=== PATIENT | male | born 1980 | race Hispanic/Latino ===

== ENCOUNTER 2020-03-19 03:03 | Inpatient (IN) | payer OTHER, SELFPAY ==
[2020-03-19 04:19] LABS: Medtox Reader # READER 4; THC/Cannabinoid Screen Detected (NotDetected)
[2020-03-19 04:20] LABS: Amphetamine Not Detected (NotDetected); Barbiturates Screen Not Detected (NotDetected); Benzodiazepine Screen Not Detected (NotDetected); Cocaine Metabolite Screen Not Detected (NotDetected); Medtox Control Line Valid? VALID (VALID); Methadone Not Detected (NotDetected); Methamphetamine Not Detected (NotDetected); Opiate Screen Not Detected (NotDetected); Oxycodone Screen Not Detected (NotDetected); Phencyclidine (PCP) Not Detected (NotDetected); Tricyclic Screen Not Detected (NotDetected)
[2020-03-19] MEDS ORDERED: hydrALAZINE 20 MG/ML VIAL SLOW IVP PRN (04:46)
[2020-03-19 04:50] LABS: Acetaminophen Less than 6.0 mcg/mL (10.0-30.0); Alcohol Less than 10 mg/dL (Less than 10); Salicylate Less than 8.0 mg/dL (15.0-30.0)
[2020-03-19 05:00] LABS: Troponin I Less than 0.010 ng/mL (< 0.028)
--- NOTE | 2020-03-19 05:25 | HP ---
REASON FOR ADMISSION: Abdominal pain. HISTORY OF PRESENT ILLNESS: This is a 39-year-old male patient, who was transferred from the emergency room at [place] to our emergency room. He had multiple visits to the ER for abdominal pain and is supposed to follow up with GI as an outpatient. He returns with abdominal pain and hiccups with nausea and vomiting. He underwent multiple investigations so far. No obvious source for his pain. He is known to actively use marijuana and other substances and since he claims that it has been a week he had not used marijuana, it was thought that his abdominal pain is secondary to withdrawals. At the ER at [place], he received 25 mg of Phenergan and 1 mg of Ativan. The patient became somnolent, but easily arousable, but then fell back into sleep. He is currently in our emergency room. When I went to see him, he was hiccuping, but also very somnolent, wakes up briefly and then falls back into sleep. When asked about his pain, he points to the supraumbilical area. I did review ER notes and I see that he has been complaining of the abdominal pain intermittently for the past two weeks, but has been constant for the past two days. He did report vomiting 10 times. He did report seeing red in his vomitus. The patient does not have any past medical history. SOCIAL HISTORY: He does not smoke. Does not drink alcohol. He does have history of substance abuse as mentioned above. FAMILY HISTORY: Unable to obtain due to his somnolence. REVIEW OF SYSTEMS: Unable to obtain due to somnolence. PHYSICAL EXAMINATION: GENERAL: He is somnolent. He is arousable, but then falls back into sleep. VITAL SIGNS: His blood pressure is 187/116, heart rate of 100, temperature 98.5, saturating 99% on room air. HEENT: Head is nontraumatic and normocephalic. Pupils are equal and reactive. Extraocular movements are intact. Nonicteric sclerae. Well injected conjunctivae. Oral mucosa normal. Nasal mucosa normal. NECK: Supple. No adenopathy. No murmur. Thyroid is not palpable. Trachea is midline. No supraclavicular lymphadenopathy. CARDIOVASCULAR: S1, S2 regular. No murmurs. No gallops. No friction rubs. No displacement of PMI. LUNGS: Poor inspiratory effort. Bowel sounds are positive. Slight tenderness on palpation of the suprapubic area. Abdomen: Overall, the abdomen is soft. EXTREMITIES: No lower extremity edema. No cyanosis. NEUROLOGIC: Unable to perform due to somnolence. LABORATORY DATA: Blood work shows WBC of 8.9 and hemoglobin 16.9, previously 14.6. Sodium of 135, potassium 3.1, creatinine 1.32, previously 0.94. Troponin of 0.045. A urine tox screen shows cannabinoids. CT of the abdomen shows eccentric thickening involving the distal esophagus, potentially related to small hiatal hernia. Upper GI versus endoscopy is recommended. ASSESSMENT AND PLAN: This is a 39-year-old male patient presenting with recurrent abdominal pain. CAT scan showing eccentric thickening involving the distal esophagus. His pain remains of unclear etiology. At [facility] [facility], he did receive Ativan and Phenergan. Currently, he is very somnolent. His blood pressure appears to be uncontrolled and his initial troponin was indeterminate. The patient will be admitted to telemetry. We will continue cycling his cardiac enzymes and we will provide him with IV hydralazine for blood pressure control. In regard of his abdominal pain, we will start him on IV Protonix for possible gastritis/peptic ulcer disease and we will ask GI to see him until then he will be n.p.o. For deep venous thrombosis prophylaxis, he will be on SCDs. Regarding his worsening kidney function, he will receive IV fluids. We will recheck his electrolytes. Later on today, he did receive boluses at the ER. Job ID: [id number]
[2020-03-19] MEDS ORDERED: Sodium Chloride 0.9% (PF) 10 ML VIAL FS PRN (05:30)
[2020-03-19] MEDS: Metoclopramide HCl 10 MG/2 ML VIAL IVP SCH ×3 (05:45→21:50)
[2020-03-19] MEDS: Dextrose 5 % And 0.9 % NaCl 1,000 ML IV SCH ×2 (05:45→18:37)
[2020-03-19 07:47] LABS: Troponin I 0.012 ng/mL (< 0.028)
[2020-03-19 08:03] LABS: Chloride 103 mmol/L (98-107); Potassium 3.8 mmol/L (3.5-5.1); Sodium 137 mmol/L (136-145)
[2020-03-19 08:04] LABS: Calcium 8.6 mg/dL (7.8-10.44); Glucose 123 mg/dL (70-105)
[2020-03-19 08:06] LABS: Anion Gap 16 mmol/L (10-20); Carbon Dioxide 22 mmol/L (22-29)
[2020-03-19 08:08] LABS: Calc. Creatinine Clearance 100 mL/min (70-130); Estimated GFR-MDRD Greater than 90
[2020-03-19 08:09] LABS: BUN (Urea Nitrogen) 18 mg/dL (8.9-20.6)
[2020-03-19 08:12] LABS: Bilirubin Negative (Negative); Blood, Urine Negative (Negative); Clarity Clear (Clear); Glucose, Urine (Dipstick) Normal (Negative); Ketone, Urine Trace mg/dL (Negative); Leukocyte Negative Leu/uL (Negative); Nitrite Negative (Negative); Protein, Urine (Dipstick) Negative (Neg-Trace); Specific Gravity, Urine 1.012 (1.002-1.036); Urobilinogen Normal mg/dL (Less than 2); pH, Urine 7.5 (5.0-9.0)
[2020-03-19 08:17] LABS: #Lymphocytes 1.1 thou/uL (1.20-3.40); #Monocytes 0.6 thou/uL (0.11-0.59); %Eosinophils 0.2 % (0.0-10.0); %Lymphocytes 13.1 % (21.0-51.0); %Monocytes 6.4 % (0.0-10.0); %Neutrophils 80.2 % (42.0-75.0); Mean Corpuscular HGB CONC 34.3 g/dL (32.0-36.0); Mean Corpuscular Hemoglobin 31.8 pg (27.0-31.0); Mean Corpuscular Volume 92.7 fL (78.0-98.0); Mean Platelet Volume 7.8 fL (7.4-10.4); Platelet Count 311 thou/uL (130-400); RBC Distribution Width 12.8 % (11.5-14.5); Red Blood Cell (RBC) Count 5.02 mill/uL (4.70-6.10); White Blood Cell (WBC) Count 8.7 thou/uL (4.8-10.8)
[2020-03-19 08:35] LABS: ALT (SGPT) 31 U/L (8-55); AST (SGOT) 22 U/L (5-34); Albumin 4.2 g/dL (3.5-5.0); Alkaline Phosphatase 54 U/L (40-110); Anion Gap 15 mmol/L (10-20); BUN (Urea Nitrogen) 17 mg/dL (8.9-20.6); Bilirubin, Total 1.2 mg/dL (0.2-1.2); Calc. Creatinine Clearance 96 mL/min (70-130); Calcium 8.5 mg/dL (7.8-10.44); Carbon Dioxide 22 mmol/L (22-29); Chloride 102 mmol/L (98-107); Estimated GFR-MDRD Greater than 90; Globulin 2.9 g/dL (2.4-3.5); Glucose 129 mg/dL (70-105); Lipase 9 U/L (8-78); Potassium 3.6 mmol/L (3.5-5.1); Protein, Total 7.1 g/dL (6.0-8.3); Sodium 135 mmol/L (136-145)
[2020-03-19] MEDS: Pantoprazole 40 MG VIAL IVP SCH ×2 (08:43→21:50)
--- NOTE | 2020-03-19 12:13 | PDOC.HOSPP ---
- Subjective Encounter Date: 03/19/20 Encounter Time: 09:50 Subjective: Jim is quite somnolent. He is barely able to talk to me. Does say he has abdominal discomfort. COVID is pending. - Objective Vital Signs & Weight: Vital Signs (12 hours) Temp Pulse Resp BP Pulse Ox 03/19/20 07:38 99.2 F 86 16 171/112 H 99 03/19/20 04:34 98.3 F 86 22 H 172/111 H 97 Weight Weight 137 lb 4.8 oz I&O: 03/18/20 03/19/20 03/20/20 06:59 06:59 06:59 Output Total 400 Balance -400 Result Diagrams: 03/19/20 08:03 03/19/20 08:03 Hospitalist ROS - Medication Medications: Active Medications Generic Name Dose Route Start Last Admin Trade Name Freq PRN Reason Stop Dose Admin Dextrose/Sodium Chloride 1,000 mls @ 75 mls/hr 03/19/20 05:00 03/19/20 05:45 D5 0.9% Ns IV 1,000 mls .[id number] MITA Administration Metoclopramide HCl 5 mg 03/19/20 06:00 03/19/20 05:45 Metoclopramide Hcl 10 Mg/2 Ml Vial IVP 5 mg Q8HR MITA Administration Pantoprazole Sodium 40 mg 03/19/20 09:00 03/19/20 08:43 Pantoprazole 40 Mg Vial IVP 40 mg Q12HR MITA Administration Sodium Chloride 10 ml 03/19/20 05:30 03/19/20 05:47 Flush - Normal Saline 10 Ml Syringe IVF 10 ml PRN PRN Administration Saline Flush - Exam General Appearance: NAD, ill appearing General - other findings: Sleepy and fatigued Eye: PERRL ENT: normocephalic atraumatic Neck: supple Heart: RRR, normal peripheral pulses Respiratory: CTAB, normal chest expansion Gastrointestinal: soft, normal bowel sounds Neurological: no focal deficits Psychiatric: somnolent Psychiatric - other findings: Sleepy. Hosp A/P - Plan Persistent intractable abdominal pain. Distal esophagitis --On IV protonix --GI consult pending -Tylenol versus Ultram as needed. -Zofran as needed Hypertensive urgency. --Patient does not have any home medications. -Starting him on a low-dose Norvasc as well as hydralazine with more frequency to uptitrate easily if needed. COVID swab pending.
[2020-03-19] MEDS ORDERED: Acetaminophen 325 MG TAB PO PRN (12:18)
[2020-03-19] MEDS ORDERED: Ondansetron PF 4 MG/2 ML Vial IVP PRN (12:18)
[2020-03-19] MEDS ORDERED: traMADol HCl 50 MG TAB PO PRN (12:18)
[2020-03-19] MEDS: hydrALAZINE 25 MG TAB PO SCH ×2 (13:27→21:49)
[2020-03-19 13:29] LABS: SARS-CoV-2 MS2 Positive; SARS-CoV-2 N Gene Negative; SARS-CoV-2 S Gene Negative; SARS-CoV-2 by NAA Not Detected (NotDetected); SARS-CoV-2 orf1ab Negative
[2020-03-19] MEDS ORDERED: hydrALAZINE 25 MG TAB PO SCH (15:00)
--- NOTE | 2020-03-19 18:40 | CON ---
DATE OF CONSULTATION: 03/19/2020 REQUESTING PHYSICIAN: Jessica Valente MD REASON FOR CONSULTATION: Abdominal pain. HISTORY OF PRESENT ILLNESS: Toby Perez is a 39-year-old man, who was admitted to the hospital last night after multiple recent ER presentations with abdominal pain, nausea, and vomiting. He reports that he has been told that he had ulcer disease in the past based on prior endoscopy in [place] several years ago. He reports having taken several medications off and on through the years for hypertension and for abdominal pain as well as reflux. He says he takes ibuprofen on an as-needed basis. He is not really sure what he has taken for reflux in the past. He has not had any abdominal surgeries. He does have a long history of marijuana use, but says he quit just 1 week ago. At any rate, he says for several years, he has had intermittent pain throughout the abdomen, but for the past couple of weeks, and especially the past couple of days, it has been much worse. The pain is primarily in the epigastrium. It is always worse postprandially. It is associated with nausea. Over the past couple of days, he has had multiple episodes of emesis. He says that the emesis ranges from yellow liquid to coffee-ground material and a couple of times there was a little bit of red within the emesis. He has not been throwing up today. After admission last night, he was started on Reglan 5 mg q.8 hours IV as well as Protonix 40 mg IV q.12 hours. He is still having a lot of epigastric pain and still feels nauseated. He has been n.p.o. today. He is also being treated for hypertensive urgency with Norvasc and amlodipine. He has remained hemodynamically stable. Lab evaluation was really unremarkable except for urine tox screen showed positive for cannabinoids and a CT of the abdomen and pelvis demonstrating mild eccentric wall thickening in the distal esophagus, otherwise unrevealing. REVIEW OF SYSTEMS: Full review of systems including constitutional, head, eyes, ears, nose, throat, GI, , cardiovascular, respiratory, musculoskeletal, and neurologic systems is negative except as noted in the HPI. PAST MEDICAL HISTORY: 1. Reported history of peptic ulcer disease several years ago diagnosed in [place]. 2. Hypertension. 3. Chronic abdominal pain. ALLERGIES: NO KNOWN DRUG ALLERGIES. MEDICATIONS: Outpatient medications: None. Inpatient medications: 1. Tylenol p.r.n. 2. Norvasc. 3. Hydralazine. 4. Reglan 5 mg IV q.8 hours. 5. Zofran 4 mg IV q.6 hours p.r.n. 6. Pantoprazole 40 mg IV q.12 hours. 7. Tramadol p.r.n. SOCIAL HISTORY: He denies tobacco use. He is not having any alcohol at present. He does have long history of marijuana use, but says he quit 1 week ago. He denies other drug use. FAMILY HISTORY: No known family history of gastrointestinal illness or malignancy. PHYSICAL EXAMINATION: VITAL SIGNS: Temperature 98.9, blood pressure 194/123, heart rate 85, and oxygen saturation 100% on room air. GENERAL: A 39-year-old man, appearing nontoxic, lying in bed comfortably, somnolent, but easily arousable. When arouse, he appears to be in mild distress from abdominal pain. SKIN: No jaundice, no rashes were palpable. EYES: No scleral icterus. Extraocular movements intact. ENT: Mucous membranes moist. No oral lesions. Lymph: No submandibular or supraclavicular lymphadenopathy. THYROID: Nontender to palpation. HEART: Regular rate and rhythm. LUNGS: Clear to auscultation bilaterally. ABDOMEN: Nondistended. Bowel sounds are present. Soft. Reports tenderness to palpation throughout the abdomen, but no guarding or rebound tenderness. EXTREMITIES: No peripheral edema. VESSELS: Radial pulses 2+ bilaterally. NEURO: Cranial nerves II through XII intact bilaterally. No focal deficits. LABORATORY STUDIES: WBC 8.7, hemoglobin 16, and platelets 311. Sodium 135, potassium 3.6, BUN 17, and creatinine 0.89. Lipase only 9. Troponin negative. LFTs all normal with total bilirubin 1.2, alkaline phosphatase 54, AST 22, ALT 31, and albumin 4.2. Urinalysis negative. COVID negative. Urine tox screen is positive for cannabinoids. Serum plasma is negative for alcohol, Tylenol, or salicylates. IMAGING STUDIES: Chest x-ray and abdominal x-ray are unremarkable. On 03/16/2020, CT of the abdomen and pelvis demonstrated mild eccentric wall thickening in the distal esophagus, a tiny right hepatic hypodensity, which is too small to characterize. Otherwise, normal-appearing liver, spleen, pancreas, and bowel. Otherwise, normal exam. ASSESSMENT AND PLAN: 1. Epigastric pain. 2. Nausea and vomiting. 3. Coffee-ground emesis. 4. Esophageal thickening per CT scan 3 days ago. I had a long discussion with the patient. The primary differential would be upper gastrointestinal mucosal pathology such as gastritis or peptic ulcer disease, or erosive esophagitis, versus cannabinoid hyperemesis syndrome with secondary esophagitis due to all the vomiting. His laboratory and imaging evaluation are unremarkable. We are going to plan for diagnostic esophagogastroduodenoscopy tomorrow. If the EGD is negative or unrevealing, this would point more definitively towards cannabinoid hyperemesis syndrome. Regardless, he needs to completely stay away from all marijuana going forward, as he states he only quit 1 week ago. In the meantime, continuing with IV Protonix and Reglan. Thank you for the consultation. Please call anytime with questions or concerns. Further recommendations following EGD tomorrow. Job ID: [id number]
[2020-03-19] MEDS ORDERED: Amlodipine 5 MG TAB PO SCH (21:00)
[2020-03-19] MEDS: Amlodipine 5 MG TAB PO SCH (21:48)
[2020-03-20] MEDS: Metoclopramide HCl 10 MG/2 ML VIAL IVP SCH ×3 (05:17→21:26)
[2020-03-20] MEDS ORDERED: Sodium Chloride 0.9% 10 ML ONE (09:24)
[2020-03-20] MEDS: Dextrose 5 % And 0.9 % NaCl 1,000 ML IV SCH (11:00)
[2020-03-20] MEDS: Amlodipine 5 MG TAB PO SCH ×2 (11:01→21:28)
[2020-03-20] MEDS: hydrALAZINE 25 MG TAB PO SCH ×3 (11:01→21:28)
[2020-03-20] MEDS: Pantoprazole 40 MG VIAL IVP SCH ×2 (11:02→21:29)
[2020-03-20 11:18] VITALS: BMI 22.4
--- NOTE | 2020-03-20 12:07 | PDOC.HOSPP ---
- Subjective Encounter Date: 03/20/20 Encounter Time: 10:20 Subjective: Patient returned from EGD which showed hiatal hernia and biopsy done. Starting him on clear liquid diet. Care plan discussed with him. Including possibility for hyperemesis syndrome secondary to marijuana use. I asked him to stop using it that could have triggered him to have hyperemesis syndrome if it becomes more severe and serious he can have worsening of his upper GI bleed including hemodynamic instability. Patient seems to be understanding. - Objective Vital Signs & Weight: Vital Signs (12 hours) Temp Pulse Resp BP BP BP Pulse Ox 03/20/20 11:38 97.6 F 03/20/20 11:01 70 159/100 H 03/20/20 10:50 66 20 159/100 H 100 03/20/20 07:51 97.7 F 70 16 131/89 99 03/20/20 04:13 98.0 F 67 16 130/81 98 03/20/20 00:23 69 18 124/91 H Weight Admit Weight 137 lb 4.8 oz Weight 130 lb 9.6 oz I&O: 03/19/20 03/20/20 03/21/20 06:59 06:59 06:59 Intake Total 2091 Output Total 1100 Balance 991 Result Diagrams: 03/19/20 08:03 03/19/20 08:03 Hospitalist ROS - Medication Medications: Active Medications Generic Name Dose Route Start Last Admin Trade Name Freq PRN Reason Stop Dose Admin Amlodipine Besylate 5 mg 03/19/20 21:00 03/20/20 11:01 Amlodipine 5 Mg Tab PO 5 mg BID MITA Administration Hydralazine HCl 25 mg 03/19/20 15:00 03/20/20 11:01 Hydralazine 25 Mg Tab PO 25 mg TID MITA Administration Dextrose/Sodium Chloride 1,000 mls @ 75 mls/hr 03/19/20 05:00 03/20/20 11:00 D5 0.9% Ns IV 1,000 mls .[id number] MITA Administration Metoclopramide HCl 5 mg 03/19/20 06:00 03/20/20 05:17 Metoclopramide Hcl 10 Mg/2 Ml Vial IVP 5 mg Q8HR MITA Administration Pantoprazole Sodium 40 mg 03/19/20 09:00 03/20/20 11:02 Pantoprazole 40 Mg Vial IVP 40 mg Q12HR MITA Administration Sodium Chloride 10 ml 03/19/20 05:30 03/19/20 05:47 Flush - Normal Saline 10 Ml Syringe IVF 10 ml PRN PRN Administration Saline Flush Sodium Chloride 10 ml 03/19/20 05:30 03/20/20 11:02 Sodium Chloride 0.9% (Pf) 10 Ml Vial FS 10 ml PRN PRN Administration RECONSTITUTION - Exam General Appearance: NAD, awake alert Eye: PERRL ENT: normocephalic atraumatic Neck: supple Heart: RRR, normal peripheral pulses Respiratory: CTAB, normal chest expansion Gastrointestinal: soft, normal bowel sounds Neurological: no focal deficits Psychiatric: A&O x 3 Hosp A/P - Plan Persistent intractable abdominal pain. Distal esophagitis --On IV protonix --GI consult pending -Tylenol versus Ultram as needed. -Zofran as needed Hypertensive urgency. --Patient does not have any home medications. -Starting him on a low-dose Norvasc as well as hydralazine with more frequency to uptitrate easily if needed. COVID swab pending.-------------> negative EGD showed hiatal hernia and biopsy done. Starting him on clear liquid diet. Care plan discussed with him. Including possibility for hyperemesis syndrome secondary to marijuana use. I asked him to stop using it as that could have triggered him to have hyperemesis syndrome. if it becomes more severe and serious he can have worsening of his upper GI bleed including hemodynamic instability. Patient seems to be understanding. -Starting him on clear liquid diet will advance as he tolerates. -If all goes well possible discharge in 1 to 2 days.
[2020-03-20] MEDS ORDERED: Lidocaine 1% PF 5 ML VIAL ONE (14:17)
[2020-03-20] MEDS ORDERED: PROPOFOL 200 MG/20 ML VIAL ONE (14:17)
--- NOTE | 2020-03-20 15:26 | OP ---
DATE OF PROCEDURE: 03/20/2020 PROCEDURE PERFORMED: Esophagogastroduodenoscopy with biopsy. INDICATIONS FOR PROCEDURE: Midepigastric abdominal pain, nausea, vomiting, and possible hematemesis. DESCRIPTION OF PROCEDURE: After the risks and benefits of the procedure were explained to the patient including risks of bleeding, infection, perforation, reactions to anesthesia, aspiration, and/or pain, informed consent was obtained. The patient was then taken to the endoscopy suite, where he was maneuvered into the left lateral decubitus position, followed by introduction of deep sedation via propofol and anesthesia support. Once adequate sedation was achieved, the standard gastroscope was introduced into the mouth with intubation of the esophagus, stomach, and the proximal small intestine with the findings listed below. The patient tolerated the procedure well with no immediate perioperative complications. On conclusion of the procedure, all equipment was removed from the patient and he was transferred to PACU in satisfactory condition. FINDINGS: Esophagus: Normal-appearing mucosa was seen in both the proximal and mid esophagus; however, multiple linear erosions were seen in the distal esophagus, extending proximally with maximum length of these erosions at approximately 1 cm in length and they did not extend between esophageal folds. There was mild erythema and edema associated with these linear erosions, but no evidence of active or recent bleeding. The diaphragmatic pinch was seen at 40 cm while the gastroesophageal junction was well seen at 38 cm, denoting a 2-cm hiatal hernia. Otherwise, there was no evidence of mass lesions or active/recent bleeding. Stomach: A 3 to 4 cm, large, beefy red erythematous patch was seen in the gastric fundus and extending toward the gastric body, but did not exhibit any evidence of ulcerations, erosions, or active/recent bleeding. Multiple biopsies were then taken from this erythematous patch with a minimal amount of bleeding noted upon biopsies. Otherwise, normal-appearing mucosa was seen at the gastroesophageal junction, cardia, body, greater curvature, antrum, and incisura. There was no evidence of erosions, ulcerations, mass lesions, or active/recent bleeding. Duodenum: Normal-appearing mucosa was seen in both the duodenal bulb and second portion of the duodenum. There was no evidence of erosions, ulcerations, mass lesions, or active/recent bleeding. IMPRESSION: 1. LA grade B reflux-mediated erosive esophagitis. 2. 2-cm hiatal hernia, likely contributing to #1. 3. A 3 to 4 cm, large, beefy red erythematous patch seen in the gastric fundus, status post biopsies, concerning for either Helicobacter pylori infection versus ischemia from invagination of the stomach into the diaphragmatic hiatus. 4. No evidence of active or recent bleeding seen during this examination. RECOMMENDATIONS: 1. We would continue to trend the patient's hemoglobin and hematocrit and transfuse as necessary to maintain hemoglobin and hematocrit of 7/21. 2. Continue to monitor clinically for signs of active GI bleeding. 3. Pain control per Primary Team. 4. We would continue with aggressive antiemetic treatment as you are doing. 5. We would start the patient on a clear liquid diet and advance as tolerated. 6. Strongly encourage marijuana cessation as it could be potentially generating his symptoms. 7. We will continue PPI 40 mg b.i.d., but can transfer to oral formulation tomorrow. We will continue to follow. Please call with any questions. Job ID: [id number]
[2020-03-21] MEDS: Dextrose 5 % And 0.9 % NaCl 1,000 ML IV SCH (00:38)
[2020-03-21] MEDS: Metoclopramide HCl 10 MG/2 ML VIAL IVP SCH (05:27)
[2020-03-21] MEDS ORDERED: Sodium Chloride 0.9% (PF) 10 ML VIAL FS PRN (08:52)
[2020-03-21] MEDS ORDERED: Pantoprazole 40 MG VIAL IVP SCH (09:00)
[2020-03-21] MEDS: hydrALAZINE 25 MG TAB PO SCH (09:32)
[2020-03-21] MEDS: Amlodipine 5 MG TAB PO SCH (09:32)
[2020-03-21 11:57] VITALS: BP 121/83; TEMP 97.5
--- NOTE | 2020-03-21 15:58 | DIS ---
DATE OF ADMISSION: 03/19/2020 DATE OF DISCHARGE: 03/21/2020 DISCHARGE DIAGNOSES: 1. Persistent intractable abdominal pain secondary to likely hyperemesis syndrome with marijuana use. 2. Distal esophagitis. 3. Hypertensive urgency. 4. COVID negative. DISCHARGE MEDICATIONS: Protonix 40 mg twice a day for 1 week and then one tablet daily. PROCEDURE PERFORMED: EGD showed hiatal hernia and biopsy done. PHYSICAL EXAMINATION: VITAL SIGNS: On the day of discharge, his temperature is 97.5, pulse 79, blood pressure 121/83, and saturating 97% on room air. GENERAL: The patient is alert and oriented. He appears well. He is tolerating his p.o. diet. No further emesis. He is agreeable for the discharge plan. CARDIOVASCULAR: Regular rate and rhythm without murmurs, rubs, or gallops. LUNGS: Clear to auscultation. ABDOMEN: Quite benign. HOSPITAL COURSE: A 39-year-old male with a history of marijuana use, presented with ongoing persistent intractable abdominal pain as well as nausea and vomiting. He was started on IV Protonix and undergone EGD. He had grade B reflux-mediated erosive esophagitis and 2 cm hiatal hernia. There is also 3 to 4 cm large, beefy red, erythematous patch in the gastric fundus, status post biopsy concerning for either Helicobacter pylori infection versus ischemia from invagination of the stomach . His hemoglobin is 16. He is advised to follow up with Dr. Walsh in a couple of weeks to follow up on the biopsy result. DISCHARGE INSTRUCTIONS: Activity as tolerated. Regular diet. Follow up with PCP in 1 week. Follow up with Dr. Walsh, shank rander in 2 to 3 weeks for biopsy result followup. Job ID: [id number] [facility]
== END 2020-03-21 14:20 | disposition home or self-care (01) | DRG 392 ==
LOC: ERS 03:03 → 2SW 03:41 → OBSVTOIN 12:47
PROVIDERS: ADMIT Internal Medicine; ATTEND Internal Medicine
PROC: 0DB78ZX Excision of Stomach, Pylorus, Via Natural or Artificial Opening Endoscopic, Diagnostic (ICD-10-PCS; principal; 2020-03-20)
DX: R11.2 Nausea with vomiting, unspecified (principal); F12.90 Cannabis use, unspecified, uncomplicated; Z20.828 Contact with and (suspected) exposure to other viral communicable diseases; K44.9 Diaphragmatic hernia without obstruction or gangrene; I16.0 Hypertensive urgency; K21.0 Gastro-esophageal reflux disease with esophagitis; I10 Essential (primary) hypertension; Z79.899 Other long term (current) drug therapy
CPT/HCPCS: 36415; 80306; 80307; 81003; 83690; 83735; 87635; 88305; 88312; 96361; 96374; 96375; 96376; 99285; C9113; G0378; J1642; J2704; J2765; U0003